=== PATIENT | male | born 1965 | race Caucasian/White ===

== ENCOUNTER 2024-03-12 18:26 | Emergency (ER) | payer OTHER ==
[~2024-03-12] VITALS: Ht 170.2 cm; Wt 66.4 kg
[2024-03-12 18:45] VITALS: BP 151/108; PULSE 66; RESP 16; TEMP 97.7; O2SAT 98
[2024-03-12] MEDS: KETOROLAC 30 MG/ML VIAL IM ONE (19:37)
[2024-03-12 19:45] VITALS: BP 151/108; PULSE 66; RESP 16; TEMP 97.7; O2SAT 98
== END 2024-03-12 19:45 | disposition home or self-care (01) ==
LOC: MED 18:26
DX: K08.89 Other specified disorders of teeth and supporting structures (principal)
CPT/HCPCS: 12001; 96372; 99283; J1885